=== PATIENT | male | born 1970 | race African-American/Black ===

== ENCOUNTER 2017-12-19 20:24 | Inpatient (IN) | payer OTHER ==
[~2017-12-19] VITALS: Ht 188 cm; Wt 145.1 kg
[2017-12-19] MEDS ORDERED: SODIUM CHLORIDE 0.9% 1,000 ML IV ONE (20:48)
[2017-12-19 21:26] LABS: BASOPHILS % 0.5 % (0.0-2.0); EOSINOPHILS % 0.4 % (0.0-5.0); HEMATOCRIT. 21.6 % (42.0-52.0); LYMPHOCYTES % 16.7 % (20.0-50.0); MEAN CORPUSCULAR VOLUME 79.9 fL (80.0-94.0); MEAN PLATELET VOLUME 6.7 fl (7.4-10.4); MONOCYTES % 4.2 % (2.0-8.0); NEUTROPHILS % 78.2 % (40.0-76.0); PLATELET 289 x1000/uL (130-400); RED BLOOD CELL COUNT 2.71 mill/uL (4.7-6.1); RED CELL DISTRIBUTION WIDTH 16.1 % (11.6-14.6)
[2017-12-19 21:31] LABS: CHLORIDE 105 mEq/L (98-107)
[2017-12-19 21:33] LABS: INR 1.2; PROTHROMBIN TIME 12.2 sec (9.4-11.6)
[2017-12-19 21:40] LABS: BETA HYDROXYBUTYRATE 0.4 mMol/L (0.0-0.3)
[2017-12-19] MEDS ORDERED: SODIUM BICARBONATE 8.4% 1 MEQ/ML 50ML SYR IV ONE (21:45)
[2017-12-19] MEDS ORDERED: SODIUM POLYSTYRENE SULFONATE 15 G/60 ML BOT PO ONE (21:45)
[2017-12-19] MEDS ORDERED: DEXTROSE 50% WATER 50ML SYRINGE IV ONE (21:45)
[2017-12-19] MEDS ORDERED: INSULIN REGULAR (HUMULIN R) 300UNITS/3ML IV ONE (21:45)
[2017-12-19 22:10] LABS: BG BASE EXCESS -6.7 mmol/L (-2.0-2.0); BG CARBOXYHEMOGLOBIN 0.1 % (0.5-1.5); BG DEOXYHEMOGLOBIN 20.6 % (0.0-5.0); BG FRACTION INSPIRED OXYGEN 21; BG HCO3 ACT 17.5 mmol/L (22.0-26.0); BG METHEMOGLOBIN 0.1 % (0.0-1.5); BG OXYGEN SATURATION 79.4 % (92.0-98.5); BG OXYHEMOGLOBIN 79.2 % (94.0-97.0); BG PCO2 29.4 mmHg (35.0-45.0); BG PH 7.392 (7.350-7.450); BG PO2 45.3 mmHg (75.0-100.0); BG SAMPLE SITE RIGHT BRACHIAL; BG TOTAL HEMOGLOBIN 7.8 g/dL (12.0-18.0); BG VENT MODE ROOM AIR
[2017-12-19] MEDS ORDERED: ALBUTEROL (0.083%) 2.5MG/3ML NEB HHN STA (22:16)
[2017-12-19] MEDS ORDERED: PIPERACILLIN/TAZ 3.375G PREMIX 50 ML IV ONE (22:30)
[2017-12-19] MEDS ORDERED: ACETAMINOPHEN 650MG SUPP PR PRN (23:00)
[2017-12-19] MEDS ORDERED: HYDROCODONE/ACETAMINOPHEN 5/325MG TABLET PO PRN (23:00)
[2017-12-19] MEDS ORDERED: CLONIDINE 0.1MG TABLET PO PRN (23:00)
[2017-12-19] MEDS ORDERED: NITROGLYCERIN 0.4MG TABLET SL SL PRN (23:00)
[2017-12-19] MEDS ORDERED: IPRATROPIUM/ALBUTEROL 0.5-3(2.5)MG/3ML NEB INH PRN (23:00)
[2017-12-19] MEDS ORDERED: MAGNESIUM/ALUMINUM HYDROXIDE/SIMETHICONE 30ML UDC PO PRN (23:00)
[2017-12-19] MEDS ORDERED: HYDROCODONE/ACETAMINOPHEN 10/325MG TABLET PO PRN (23:00)
[2017-12-19] MEDS ORDERED: NA PHOS,M-B/NA PHOS,DI-BA ENEMA 118ML PR PRN (23:00)
[2017-12-19] MEDS ORDERED: DOCUSATE SODIUM 100MG CAPSULE PO PRN (23:00)
[2017-12-19] MEDS ORDERED: DEXTROSE 50% WATER 50ML SYRINGE IV PRN (23:00)
[2017-12-19] MEDS ORDERED: ACETAMINOPHEN 650MG/20.3ML UDC GT PRN (23:00)
[2017-12-19] MEDS ORDERED: LACTULOSE 20G/30ML UDC PO ONE (23:00)
[2017-12-19] MEDS ORDERED: PIPERACILLIN/TAZ 3.375G PREMIX 50 ML IV SCH (23:00)
[2017-12-19 23:28] LABS: LDL CHOLESTEROL 73 mg/dL (5-100)
[2017-12-19 23:29] LABS: HDL CHOLESTEROL 20 mg/dL (40-59)
[2017-12-20] VITALS (50 sets, daily range): BP systolic 87–152; BP diastolic 40–94
[2017-12-20] MEDS ORDERED: ONDANSETRON HCL 4MG/2ML VIAL IV PRN (01:34)
[2017-12-20] MEDS ORDERED: MORPHINE SULFATE 4 MG/ML CPJ (NOT FOR IM USE) IV PRN (01:51)
[2017-12-20 01:52] LABS: CLARITY URINE CLOUDY (CLEAR); COLOR URINE YELLOW (YELLOW); KETONES URINE NEGATIVE (NEGATIVE); LEUKOCYTE ESTERASE URINE NEGATIVE (NEGATIVE); NITRITE URINE NEGATIVE (NEGATIVE); OCCULT BLOOD URINE NEGATIVE (NEGATIVE); PROTEIN URINE 3+ (NEGATIVE); UROBILINOGEN URINE 0.2 E.U./dL (0.2-1.0)
[2017-12-20 02:03] LABS: *AMPHETAMINES SCREEN URINE NEGATIVE (NEGATIVE); *BARBITURATES SCREEN URINE NEGATIVE (NEGATIVE)
[2017-12-20 02:05] LABS: *BENZODIAZEPINES SCREEN URINE NEGATIVE (NEGATIVE); *COCAINE SCREEN URINE NEGATIVE (NEGATIVE); CANNABINOID URINE SCREEN NEGATIVE (NEGATIVE); METHADONE URINE SCREEN NEGATIVE (NEGATIVE); OPIATES URINE SCREEN NEGATIVE (NEGATIVE); PHENCYCLIDINE URINE SCREEN NEGATIVE (NEGATIVE)
[2017-12-20] MEDS ORDERED: SODIUM CHLORIDE 0.9% 1,000 ML IV SCH ×2 (03:34→03:45)
[2017-12-20] MEDS: SODIUM CHLORIDE 0.9% 1,000 ML IV SCH ×4 (04:32→17:25)
[2017-12-20] MEDS: PANTOPRAZOLE 80 MG in SODIUM CHLORIDE 0.9% 100 ML IV SCH ×2 (05:19→14:08)
[2017-12-20 05:46] LABS: BASOPHILS % 0.2 % (0.0-2.0); EOSINOPHILS % 0.1 % (0.0-5.0); LYMPHOCYTES % 13.8 % (20.0-50.0); MEAN CORPUSCULAR VOLUME 79.6 fL (80.0-94.0); MEAN PLATELET VOLUME 7.2 fl (7.4-10.4); MONOCYTES % 5.2 % (2.0-8.0); NEUTROPHILS % 80.7 % (40.0-76.0); PLATELET 280 x1000/uL (130-400); RED BLOOD CELL COUNT 2.42 mill/uL (4.7-6.1); RED CELL DISTRIBUTION WIDTH 16.2 % (11.6-14.6)
[2017-12-20 06:02] LABS: CHLORIDE 103 mEq/L (98-107)
[2017-12-20 06:10] LABS: LDL CHOLESTEROL 67 mg/dL (5-100)
[2017-12-20 06:11] LABS: CREATINE KINASE 140 IU/L (39-308); HDL CHOLESTEROL 19 mg/dL (40-59)
[2017-12-20 06:14] LABS: CREATINE KINASE MB FRACTION 4.1 ng/mL (0.5-3.6); HEMATOCRIT. 19.3 % (42.0-52.0); HEMOGLOBIN. 6.3 g/dL (14.0-18.0)
[2017-12-20] MEDS: SODIUM CHLORIDE 0.9% INJ 3ML FLUSH IVF SCH ×3 (07:00→21:19)
[2017-12-20] MEDS ORDERED: SODIUM POLYSTYRENE SULFONATE 15 G/60 ML BOT PO SCH (07:30)
[2017-12-20] MEDS ORDERED: DEXTROSE 50% WATER 50ML SYRINGE IV SCH (07:30)
[2017-12-20] MEDS ORDERED: INSULIN LISPRO 100 UNITS/ML SUBCUT SCH ×2 (07:30→08:00)
[2017-12-20] MEDS ORDERED: BLOOD SUGAR DIAGNOSTIC STRIP TEST SCH (07:30)
[2017-12-20] MEDS ORDERED: INSULIN REGULAR (HUMULIN R) 300UNITS/3ML IV ONE (10:30)
[2017-12-20] MEDS ORDERED: IPRATROPIUM/ALBUTEROL 0.5-3(2.5)MG/3ML NEB HHN PRN (11:00)
[2017-12-20] MEDS ORDERED: IPRATROPIUM/ALBUTEROL 0.5-3(2.5)MG/3ML NEB HHN SCH (12:00)
[2017-12-20] MEDS: BLOOD SUGAR DIAGNOSTIC STRIP TEST SCH ×2 (12:51→17:16)
[2017-12-20] MEDS: INSULIN LISPRO 100 UNITS/ML SUBCUT SCH ×2 (13:02→17:21)
[2017-12-20] MEDS ORDERED: SIMETHICONE 40 MG/0.6 ML 30ML ONE (13:53)
[2017-12-20] MEDS ORDERED: STERILE WATER FOR INJECTION 10ML VIAL ONE (13:53)
[2017-12-20] MEDS: PIPERACILLIN/TAZ 2.25G PREMIX 50 ML IV SCH ×3 (14:08→21:19)
[2017-12-20] MEDS ORDERED: MIDAZOLAM HCL 5 MG/5 ML VIAL ONE (15:14)
[2017-12-20] MEDS ORDERED: FENTANYL CITRATE/PF 50MCG/ML 2ML VIAL ONE (15:14)
[2017-12-20] MEDS ORDERED: FENTANYL CITRATE/PF 50MCG/ML 2ML VIAL IV PRN (15:29)
[2017-12-20] MEDS ORDERED: MIDAZOLAM HCL 5 MG/5 ML VIAL IV PRN (15:30)
[2017-12-20] MEDS ORDERED: OMEPRAZOLE 20MG CAPSULE EXTENDED RELEASE PO NR (16:30)
[2017-12-20 18:35] LABS: CREATINE KINASE MB FRACTION 2.4 ng/mL (0.5-3.6)
[2017-12-20 20:10] LABS: CHLORIDE 108 mEq/L (98-107)
[2017-12-21] VITALS (24 sets, daily range): BP systolic 121–158; BP diastolic 58–115
[2017-12-21] MEDS: BLOOD SUGAR DIAGNOSTIC STRIP TEST SCH ×4 (00:25→18:18)
[2017-12-21] MEDS: INSULIN LISPRO 100 UNITS/ML SUBCUT SCH ×4 (00:25→18:41)
[2017-12-21 05:22] LABS: BASOPHILS % 0.8 % (0.0-2.0); EOSINOPHILS % 1.7 % (0.0-5.0); HEMATOCRIT. 25.9 % (42.0-52.0); LYMPHOCYTES % 23.1 % (20.0-50.0); MEAN CORPUSCULAR VOLUME 83.3 fL (80.0-94.0); MONOCYTES % 6.5 % (2.0-8.0); NEUTROPHILS % 67.9 % (40.0-76.0); PLATELET 213 x1000/uL (130-400); RED BLOOD CELL COUNT 3.11 mill/uL (4.7-6.1); RED CELL DISTRIBUTION WIDTH 17.1 % (11.6-14.6)
[2017-12-21 05:29] LABS: CHLORIDE 107 mEq/L (98-107)
[2017-12-21 05:37] LABS: PHOSPHORUS 2.9 mg/dL (2.5-4.9)
[2017-12-21] MEDS: SODIUM CHLORIDE 0.9% INJ 3ML FLUSH IVF SCH ×3 (05:45→20:57)
[2017-12-21] MEDS: OMEPRAZOLE 20MG CAPSULE EXTENDED RELEASE PO SCH (08:33)
[2017-12-21] MEDS: SODIUM CHLORIDE 0.9% 1,000 ML IV SCH ×2 (09:00→20:57)
[2017-12-21] MEDS: PIPERACILLIN/TAZ 2.25G PREMIX 50 ML IV SCH ×3 (09:00→20:57)
[2017-12-21] MEDS: ACETAMINOPHEN 325MG TABLET PO PRN (10:19)
[2017-12-21 11:29] LABS: HEPATITIS B SURFACE ANTIGEN NEGATIVE
[2017-12-21 11:57] LABS: HEPATITIS B CORE AB IGM NEGATIVE
[2017-12-21 11:59] LABS: HEPATITIS A AB IGM NEGATIVE (NEGATIVE)
[2017-12-21] MEDS ORDERED: MAGNESIUM 2 G PREMIX 50 ML IV NR (12:00)
[2017-12-22] VITALS (7 sets, daily range): BP systolic 143–167; BP diastolic 76–86
[2017-12-22] MEDS: INSULIN LISPRO 100 UNITS/ML SUBCUT SCH ×5 (00:38→21:07)
[2017-12-22] MEDS: ACETAMINOPHEN 325MG TABLET PO PRN ×2 (00:38→08:36)
[2017-12-22] MEDS: BLOOD SUGAR DIAGNOSTIC STRIP TEST SCH ×5 (05:52→21:02)
[2017-12-22] MEDS: PIPERACILLIN/TAZ 2.25G PREMIX 50 ML IV SCH ×2 (05:52→13:23)
[2017-12-22] MEDS: SODIUM CHLORIDE 0.9% INJ 3ML FLUSH IVF SCH ×2 (05:52→13:26)
[2017-12-22 07:06] LABS: BASOPHILS % 0.7 % (0.0-2.0); EOSINOPHILS % 3.3 % (0.0-5.0); HEMATOCRIT. 23.1 % (42.0-52.0); HEMOGLOBIN. 8.2 g/dL (14.0-18.0); LYMPHOCYTES % 26.7 % (20.0-50.0); MEAN CORPUSCULAR HEMOGLOBIN 29.8 pg (28.0-32.0); MEAN CORPUSCULAR VOLUME 84.3 fL (80.0-94.0); MEAN PLATELET VOLUME 7.1 fl (7.4-10.4); MONOCYTES % 10.3 % (2.0-8.0); PLATELET 159 x1000/uL (130-400); RED BLOOD CELL COUNT 2.75 mill/uL (4.7-6.1); RED CELL DISTRIBUTION WIDTH 17.4 % (11.6-14.6)
[2017-12-22 07:36] LABS: PHOSPHORUS 3.3 mg/dL (2.5-4.9)
[2017-12-22] MEDS: OMEPRAZOLE 20MG CAPSULE EXTENDED RELEASE PO SCH (08:32)
[2017-12-22] MEDS ORDERED: AMLODIPINE 2.5MG TABLET PO SCH (13:00)
[2017-12-22] MEDS ORDERED: INSULIN GLARGINE UD 100 UNITS/ML SYR SUBCUT SCH (14:00)
== END 2017-12-22 21:16 | disposition short-term general hospital (02) | DRG 871 ==
LOC: EDBEDREQTM 22:32 → EDBEDREQSVC 22:32 → EDBEDREQ 22:32 → ER 22:52 → 5EST 22:56 → ENRESERV 22:57 → 5EST 12-20 01:49 → CVICU 12-20 04:00 → 7WST 12-21 17:55
PROVIDERS: ADMIT Family Medicine; ATTEND Family Medicine
PROC: B548ZZA Ultrasonography of Superior Vena Cava, Guidance (ICD-10-PCS; 2017-12-20)
PROC: 06HN33Z Insertion of Infusion Device into Left Femoral Vein, Percutaneous Approach (ICD-10-PCS; 2017-12-20)
PROC: B54CZZA Ultrasonography of Left Lower Extremity Veins, Guidance (ICD-10-PCS; 2017-12-20)
PROC: 30233N1 Transfusion of Nonautologous Red Blood Cells into Peripheral Vein, Percutaneous Approach (ICD-10-PCS; 2017-12-20)
PROC: 5A1D70Z Performance of Urinary Filtration, Intermittent, Less than 6 Hours Per Day (ICD-10-PCS; 2017-12-20)
PROC: 0DJ08ZZ Inspection of Upper Intestinal Tract, Via Natural or Artificial Opening Endoscopic (ICD-10-PCS; 2017-12-20)
PROC: 02HV33Z Insertion of Infusion Device into Superior Vena Cava, Percutaneous Approach (ICD-10-PCS; principal; 2017-12-20 15:30)
DX: A41.9 Sepsis, unspecified organism (principal); E43 Unspecified severe protein-calorie malnutrition; J96.01 Acute respiratory failure with hypoxia; N17.0 Acute kidney failure with tubular necrosis; J69.0 Pneumonitis due to inhalation of food and vomit; I95.9 Hypotension, unspecified; I13.2 Hypertensive heart and chronic kidney disease with heart failure and with stage 5 chronic kidney disease, or end stage renal disease; E66.01 Morbid (severe) obesity due to excess calories; N18.6 End stage renal disease; I82.432 Acute embolism and thrombosis of left popliteal vein; K92.1 Melena; Z68.41 Body mass index [BMI] 40.0-44.9, adult; E11.22 Type 2 diabetes mellitus with diabetic chronic kidney disease; D50.9 Iron deficiency anemia, unspecified; E11.42 Type 2 diabetes mellitus with diabetic polyneuropathy; E11.65 Type 2 diabetes mellitus with hyperglycemia; E78.00 Pure hypercholesterolemia, unspecified; E78.5 Hyperlipidemia, unspecified; E87.5 Hyperkalemia; I50.9 Heart failure, unspecified; K21.9 Gastro-esophageal reflux disease without esophagitis; K29.80 Duodenitis without bleeding; N28.89 Other specified disorders of kidney and ureter; Z79.01 Long term (current) use of anticoagulants; Z79.4 Long term (current) use of insulin; Z82.49 Family history of ischemic heart disease and other diseases of the circulatory system; Z83.3 Family history of diabetes mellitus
CPT/HCPCS: 36415; 36569; 36600; 51702; 70450; 71045; 73630; 74176; 76770; 76937; 78580; 80048; 80053; 80061; 80305; 81003; 82010; 82375; 82550; 82553; 82805; 82962; 83036; 83605; 83735; 84100; 84132; 84443; 84484; 85018; 85025; 85610; 86705; 86709; 86803; 86850; 86900; 86920; 87040; 87086; 87340; 93005; 93970; 94640; 96365; 96366; 96375; 99291; A4216; C1725; C1752; C1769; C9113; J1815; J2250; J2405; J2543; J3010; J3475; J3490; J7030; J7050; J7611; P9016

== ENCOUNTER 2018-07-26 23:17 | Emergency (ER) | payer OTHER, MEDICAID ==
[~2018-07-26] VITALS: Ht 182.9 cm; Wt 127.0 kg
[2018-07-27] MEDS ORDERED: FAMOTIDINE 20MG/2ML VIAL IV STA (00:10)
[2018-07-27] MEDS ORDERED: SODIUM CHLORIDE 0.9% 1,000 ML IV ONE (00:10)
[2018-07-27] MEDS ORDERED: ONDANSETRON HCL 4MG/2ML INJ IV STA (00:10)
[2018-07-27] MEDS ORDERED: MORPHINE SULFATE 10 MG/ML CPJ IV ONE ×2 (00:15→03:00)
[2018-07-27 01:22] LABS: HEMATOCRIT. 38.1 % (42.0-52.0); HEMOGLOBIN. 12.3 g/dL (14.0-18.0); MEAN CORPUSCULAR HEMOGLOBIN 25.4 pg (28.0-32.0); MEAN CORPUSCULAR VOLUME 79.1 fL (80.0-94.0); MEAN PLATELET VOLUME 7.4 fl (7.4-10.4); PLATELET 252 x1000/uL (130-400); RED BLOOD CELL COUNT 4.82 mill/uL (4.7-6.1); RED CELL DISTRIBUTION WIDTH 17.7 % (11.6-14.6)
[2018-07-27 01:30] LABS: CHLORIDE 109 mEq/L (98-107)
[2018-07-27 01:35] LABS: INR 3.7; PROTHROMBIN TIME 35.9 sec (9.1-11.1)
[2018-07-27 02:29] LABS: CLARITY URINE CLEAR (CLEAR); COLOR URINE YELLOW (YELLOW); KETONES URINE NEGATIVE (NEGATIVE); LEUKOCYTE ESTERASE URINE NEGATIVE (NEGATIVE); NITRITE URINE NEGATIVE (NEGATIVE); OCCULT BLOOD URINE 2+ (NEGATIVE); PROTEIN URINE 4+ (NEGATIVE); UROBILINOGEN URINE 0.2 E.U./dL (0.2-1.0)
[2018-07-27 03:21] LABS: PLATELET ESTIMATE NORMAL
[2018-07-27 05:14] VITALS: BP 132/58
== END 2018-07-27 05:13 | disposition short-term general hospital (02) ==
LOC: ER 23:17
DX: R11.10 Vomiting, unspecified (principal); R19.7 Diarrhea, unspecified; R10.9 Unspecified abdominal pain; N18.9 Chronic kidney disease, unspecified; I13.0 Hypertensive heart and chronic kidney disease with heart failure and stage 1 through stage 4 chronic kidney disease, or unspecified chronic kidney disease; I50.9 Heart failure, unspecified; Z79.01 Long term (current) use of anticoagulants; Z87.11 Personal history of peptic ulcer disease; Z86.711 Personal history of pulmonary embolism
CPT/HCPCS: 36415; 74176; 76705; 80053; 81003; 83605; 83690; 85025; 85610; 96361; 96374; 96375; 96376; 99285; J2270; J2405; J3490; J7030

== ENCOUNTER 2022-10-07 07:02 | Emergency (ER) | payer MEDICARE, MEDICAID ==
[~2022-10-07] VITALS: Ht 182.9 cm; Wt 90.0 kg
[2022-10-07] MEDS ORDERED: MORPHINE SULFATE 4 MG/ML CPJ (NOT FOR IM USE) IV STA (07:21)
[2022-10-07] MEDS ORDERED: ONDANSETRON HCL 4MG/2ML INJ IV STA (07:21)
[2022-10-07] MEDS ORDERED: MORPHINE SULFATE 4 MG/ML CPJ (NOT FOR IM USE) IV NR (09:54)
[2022-10-07] MEDS ORDERED: ONDANSETRON HCL 4MG/2ML INJ IV NR (09:55)
[2022-10-07 10:21] VITALS: BP 135/75
[2022-10-07 11:04] LABS: HEMATOCRIT. 36.8 % (42.0-52.0); HEMOGLOBIN. 11.9 g/dL (14.0-18.0); MEAN CORPUSCULAR VOLUME 86.5 fL (80.0-94.0); MEAN PLATELET VOLUME 7.1 fl (7.4-10.4); PLATELET 290 x1000/uL (130-400); RED BLOOD CELL COUNT 4.26 mill/uL (4.7-6.1); RED CELL DISTRIBUTION WIDTH 16.3 % (11.6-14.6)
[2022-10-07 11:30] LABS: CHLORIDE 96 mEq/L (98-107)
[2022-10-07 11:37] LABS: ETHANOL BLOOD < 10 mg/dL
[2022-10-07 12:13] LABS: PLATELET ESTIMATE NORMAL
[2022-10-07] MEDS ORDERED: ONDA4TAB50 MT (12:13)
== END 2022-10-07 13:10 | disposition home or self-care (01) ==
LOC: ER 07:55
DX: R10.9 Unspecified abdominal pain (principal); N18.6 End stage renal disease; Z88.6 Allergy status to analgesic agent; Z99.2 Dependence on renal dialysis
CPT/HCPCS: 36415; 74176; 80053; 80320; 83690; 85025; 93005; 96374; 96375; 99285; J2270; J2405; G0480

== ENCOUNTER 2022-10-09 03:04 | Emergency (ER) | payer MEDICARE, MEDICAID ==
[~2022-10-09] VITALS: Ht 185.4 cm; Wt 104.0 kg
[~2022-10-09 03:04] MED LIST: ONDA4TAB50 MT
[2022-10-09 03:11] VITALS: BP 180/90
== END 2022-10-09 10:25 | disposition left against medical advice (07) ==
LOC: ER 03:04
DX: Z53.21 Procedure and treatment not carried out due to patient leaving prior to being seen by health care provider (principal)